=== PATIENT | female | born 1965 | race Caucasian/White ===

== ENCOUNTER 2023-02-14 21:29 | Inpatient (IN) | payer SELFPAY ==
--- NOTE | 2023-02-14 22:14 | ED ---
General Adult HPI - General Chief complaint: Chest Pain Stated complaint: Chest Pain, Shortness of breath, Took Nitro Time Seen by Provider: 02/14/23 21:56 Source: patient Mode of arrival: ambulatory Limitations: no limitations - History of Present Illness Initial comments: This is a 57-year-old female with a past medical history including previous acid reflux presents emergency department for chest pain. The patient stated this chest pain began at 8:30 PM and was on the left side of her chest and was sharp in nature. The patient initially reported that this pain didn't radiate down to the left arm but is now having overall heaviness in her chest and numbness on the left arm. The patient reported that she took her 's nitroglycerin subungual tablets as well as a baby aspirin but stated that she had nausea and vomiting times one. The patient also felt warm. Denied having chest pain like this in the past and stated that she became concerned because the pain was persistent. The patient denied any other acute pain or complaints at this time. - Related Data Home Medications Medication Instructions Recorded Confirmed No Known Home Medications 02/14/23 02/14/23 Allergies Allergy/AdvReac Type Severity Reaction Status Date / Time No Known Allergies Allergy Verified 02/14/23 22:26 Review of Systems ROS Statement: Those systems with pertinent positive or pertinent negative responses have been documented in the HPI. ROS Other: All systems not noted in ROS Statement are negative. Past Medical History Past Medical History: GERD/Reflux Past Psychological History: No Psychological Hx Reported Smoking Status: Current every day smoker, Heavy tobacco smoker Past Alcohol Use History: None Reported Past Drug Use History: Marijuana General Exam Limitations: no limitations General appearance: alert, in no apparent distress Head exam: Present: atraumatic, normocephalic, normal inspection Eye exam: Present: normal appearance, PERRL Pupils: Present: normal accommodation ENT exam: Present: normal exam, normal oropharynx, mucous membranes moist Neck exam: Present: normal inspection, full ROM Respiratory exam: Present: normal lung sounds bilaterally Cardiovascular Exam: Present: normal rhythm, bradycardia, normal heart sounds GI/Abdominal exam: Present: soft, normal bowel sounds Extremities exam: Present: normal inspection, full ROM Back exam: Present: normal inspection, full ROM Neurological exam: Present: alert, oriented X3, CN II-XII intact Psychiatric exam: Present: normal affect, normal mood Skin exam: Present: warm, dry Course Vital Signs 04/17/23 04/17/23 04/17/23 21:33 21:51 22:00 Temperature 98.4 F Pulse Rate 61 59 L 50 L Respiratory 22 Rate Blood Pressure 184/83 139/87 O2 Sat by Pulse 98 Oximetry 02/14/23 02/14/23 02/14/23 22:10 22:20 22:30 Temperature Pulse Rate 55 L Respiratory Rate Blood Pressure 182/91 183/145 204/103 O2 Sat by Pulse Oximetry EKG Findings - EKG Comments: EKG Findings:: An EKG was obtained and was interpreted by myself showing a rate of 50, NH interval 190, QRS duration of 83 and QTC of 397. This EKG showed a sinus bradycardia with signs of possible ST segment elevation in lead 2, 3 and aVF. There was also ST segment elevations in lead V3, V4, V5 and V6 without any reciprocal depressions noted. These elevations were approximately 1-2mm and disease findings, a repeat EKG was ordered 15 minutes from the original EKG. Repeat EKG showed a rate of 52, NH intervals 195, QRS duration of 88 and QTC of 411. This EKG had similar findings and therefore a STEMI was activated at 2213. Medical Decision Making - Medical Decision Making Was pt. sent in by a medical professional or institution (, PA, SHOPPER, urgent care, hospital, or assisted...) When possible be specific @ -No Did you speak to anyone other than the patient for history (EMS, parent, family, police, friend...)? What history was obtained from this source @ -No Did you review nursing and triage notes (agree or disagree)? Why? @ -I reviewed and agree with nursing and triage notes Were old charts reviewed (outside hosp., previous admission, EMS record, old EKG, old radiological studies, urgent care reports/EKG's, assisted records)? Report findings @ -No old charts were reviewed Differential Diagnosis (chest pain, altered mental status, abdominal pain women, abdominal pain men, vaginal bleeding, weakness, fever, dyspnea, syncope, headache, dizziness, GI bleed, back pain, seizure, CVA, palpatations, mental health)? @ -STEMI, NSTEMI, pneumothorax, pneumonia EKG interpreted by me (3pts min.). @ -As above X-rays interpreted by me (1pt min.). @ -Chest x-ray was ordered however was not performed as the patient did the tra nsported up to the Pharmacy Account Director per STEMI protocol prior to completion CT interpreted by me (1pt min.). @ -None done U/S interpreted by me (1pt. min.). @ -None done What testing was considered but not performed or refused? (CT, X-rays, U/S, labs)? Why? @ -None What meds were considered but not given or refused? Why? @ -None Did you discuss the management of the patient with other professionals (professionals i.e. , PA, SHOPPER, lab, RT, psych nurse, social insurance adviser, stained glass glazier helper, teacher, search and rescue officer, housing case manager)? Give summary @ -Yes, rolling up machine operator on-call, Dr. Rueda was contacted per the STEMI protocol and accepted the patient to the Pharmacy Account Director emergently. Was smoking cessation discussed for >3mins.? @ -Yes Was critical care preformed (if so, how long)? @ -Yes, see above Were there social determinants of health that impacted care today? How? (Homelessness, low income, unemployed, alcoholism, drug addiction, transp ortation, low edu. Level, literacy, decrease access to med. care, usp, rehab)? @ -No Was there de-escalation of care discussed even if they declined (Discuss DNR or withdrawal of care, Hospice)? DNR status @ -No What co-morbidities impacted this encounter? (DM, HTN, Smoking, COPD, CAD, Cancer, CVA, ARF, Chemo, Hep., AIDS, mental health diagnosis, sleep apnea, morbid obesity)? @ -None Was patient admitted / discharged? Hospital course, mention meds given and route, prescriptions, significant lab abnormalities, going to OR and other pertinent info. @ -The patient was seen and evaluated emergency department. On physical exam when the patient arrived back to the room, an EKG was obtained and it did evaluate this EKG immediately. There was concerns for ST segment elevations therefore a repeat EKG was performed 15 minutes later and confirmed this. Because of the patient's symptoms and complaints in the setting of EKG findings, a STEMI was called at 2213. Laboratory workup and chest x-ray were ordered however the patient was transported up to the Pharmacy Account Director emergently at 2223 before the patient could receive any medications or labs. The patient was told of this and was agreeable. The patient was transported emergently to the Pharmacy Account Director. The patient's primary care physician was also contacted and accepted the patient for admission. Undiagnosed new problem with uncertain prognosis? @ -No Drug Therapy requiring intensive monitoring for toxicity (Heparin, Nitro, Insulin, Cardizem)? @ -No Were any procedures done? @ -No Diagnosis/symptom? @ -STEMI Acute, or Chronic, or Acute on Chronic? @ -Acute Uncomplicated (without systemic symptoms) or Complicated (systemic symptoms)? @ -Complicated Side effects of treatment? @ -No Exacerbation, Progression, or Severe Exacerbation? @ -No Poses a threat to life or bodily function? How? (Chest pain, [place], [place], pneumonia, PE, COPD, DKA, ARF, appy, cholecystitis, CVA, Diverticulitis, Homicidal, Suicidal, threat to staff... and all critical care pts) @ -Yes, STEMI can lead to permanent damage and possible . - Lab Data Result diagrams: 02/14/23 22:17 02/14/23 22:17 Lab Results 02/14/23 02/14/23 02/14/23 Range/Units 22:17 22:17 22:17 WBC 8.1 (3.8-10.6) k/uL RBC 5.12 (3.80-5.40) m/uL Hgb 15.6 (11.4-16.0) gm/dL Hct 45.2 (34.0-46.0) % MCV 88.2 (80.0-100.0) fL MCH 30.4 (25.0-35.0) pg MCHC 34.5 (31.0-37.0) g/dL RDW 13.0 (11.5-15.5) % Plt Count 172 (150-450) k/uL MPV 9.4 Neutrophils % 53 % Lymphocytes % 36 % Monocytes % 6 % Eosinophils % 3 % Basophils % 1 % Neutrophils # 4.3 (1.3-7.7) k/uL Lymphocytes # 2.9 (1.0-4.8) k/uL Monocytes # 0.5 (0-1.0) k/uL Eosinophils # 0.3 (0-0.7) k/uL Basophils # 0.1 (0-0.2) k/uL Sodium 137 (137-145) mmol/L Potassium 4.3 (3.5-5.1) mmol/L Chloride 109 H (98-107) mmol/L Carbon Dioxide 24 (22-30) mmol/L Anion Gap 4 mmol/L BUN 17 (7-17) mg/dL Creatinine 0.77 (0.52-1.04) mg/dL Est GFR (CKD-EPI)AfAm >90 (>60 ml/min/1.73 sqM) Est GFR (CKD-EPI)NonAf 87 (>60 ml/min/1.73 sqM) Glucose 119 H (74-99) mg/dL Calcium 11.8 H (8.4-10.2) mg/dL Magnesium 2.3 (1.6-2.3) mg/dL Total Bilirubin 0.5 (0.2-1.3) mg/dL AST 27 (14-36) U/L ALT 22 (4-34) U/L Alkaline Phosphatase 172 H (38-126) U/L Troponin I <0.012 (0.000-0.034) ng/mL Total Protein 6.6 (6.3-8.2) g/dL Albumin 4.1 (3.5-5.0) g/dL Critical Care Time Critical Care Time: Yes Total Critical Care Time: 31 Disposition Clinical Impression: ST elevation myocardial infarction (STEMI) Disposition: ADMITTED IP TO THIS [facility] Condition: Fair Is patient prescribed a controlled substance at d/c from ED?: No Time of Disposition: 22:13 Decision to Admit Reason: Admit from EC Decision Date: 02/14/23 Decision Time: 22:13
[2023-02-14 22:26] LABS: Basophils # (A) 0.1 k/uL (0-0.2); Basophils % (A) 1 %; Eosinophils # (A) 0.3 k/uL (0-0.7); Eosinophils % (A) 3 %; HCT 45.2 % (34.0-46.0); HGB 15.6 gm/dL (11.4-16.0); Lymphocytes # (A) 2.9 k/uL (1.0-4.8); Lymphocytes % (A) 36 %; MCH 30.4 pg (25.0-35.0); MCHC 34.5 g/dL (31.0-37.0); MCV 88.2 fL (80.0-100.0); Mean Platelet Volume 9.4; Monocytes # (A) 0.5 k/uL (0-1.0); Monocytes % (A) 6 %; Neutrophils # (A) 4.3 k/uL (1.3-7.7); Neutrophils % (A) 53 %; Platelet Count 172 k/uL (150-450); RBC 5.12 m/uL (3.80-5.40); WBC 8.1 k/uL (3.8-10.6)
[2023-02-14] MEDS ORDERED: NALOXONE 0.4 MG/ML 1 ML VIAL IV PRN (22:28)
[2023-02-14] MEDS ORDERED: IV FLUID CONTINUATION 1,000 ML IV ONE (22:30)
[2023-02-14] MEDS ORDERED: fentaNYL (PF) 50 MCG/ML 2 ML AMP ONE (22:37)
[2023-02-14] MEDS ORDERED: LIDOCAINE 1% INJ 10MG/ML (20 ML MDV) ONE (22:37)
[2023-02-14 22:41] LABS: ALT 22 U/L (4-34); AST 27 U/L (14-36); African American GFR (CKD) >90 (>60 ml/min/1.73 sqM); Albumin 4.1 g/dL (3.5-5.0); Alkaline Phosphatase 172 U/L (38-126); Anion Gap 4 mmol/L; Blood Urea Nitrogen 17 mg/dL (7-17); Calcium 11.8 mg/dL (8.4-10.2); Carbon Dioxide 24 mmol/L (22-30); Chloride 109 mmol/L (98-107); Glucose 119 mg/dL (74-99); Magnesium 2.3 mg/dL (1.6-2.3); Non-African American GFR(CKD) 87 (>60 ml/min/1.73 sqM); Potassium 4.3 mmol/L (3.5-5.1); Sodium 137 mmol/L (137-145); Total Bilirubin 0.5 mg/dL (0.2-1.3); Total Protein 6.6 g/dL (6.3-8.2)
[2023-02-14] MEDS ORDERED: LIDOCAINE 1% INJ 10MG/ML (5 ML VIAL-PF) SQ ONE (22:41)
[2023-02-14] MEDS ORDERED: MIDAZOLAM 2 MG/2 ML VIAL IV ONE (22:43)
[2023-02-14] MEDS ORDERED: fentaNYL (PF) 50 MCG/ML 2 ML AMP IV ONE (22:43)
[2023-02-14] MEDS ORDERED: IOPAMIDOL-370 125ML BTL INJ ONE (22:49)
[2023-02-14] MEDS ORDERED: RX INFO: IV CONTRAST WAS GIVEN 1 EACH MISC MISCELLANE PRN (23:03)
[2023-02-14] MEDS ORDERED: SODIUM CHLORIDE 0.9% 1,000 ML IV SCH (23:15)
[2023-02-14 23:16] LABS: Glucose,Whole Blood 135 mg/dL (70-110)
--- NOTE | 2023-02-15 07:35 | P.PN ---
Subjective Progress Note Date: 02/15/23 PROGRESS NOTE The patient is a 57-year-old female with no prior cardiac history who presented with chest discomfort and questionable inferior wall changes. She underwent cardiac catheterization that showed no obstructive disease. She's feeling better this morning. She denies any chest discomfort, dizziness or palpitations. Hemodynamically she is stable and continues to be in sinus mechanism. There is no evidence of arrhythmia. Medications: IV normal saline PHYSICAL EXAMINATION: Blood pressure 129/70 heart rate 50 LUNGS: Clear to auscultation HEART: Regular rate and rhythm, S1, S2. No S3. No systolic murmur ABDOMEN: Soft, nontender, no organomegaly EXTREMETIES: No edema, right groin no hematoma LAB: Troponin less than 0.012, BUN 17, potassium 4.3 IMPRESSION: 1. Chest discomfort, noncardiac 2. Episodes of hypertension now stable PLAN: 1. Obtain an echocardiogram with Doppler 2. Increase physical activity 3. Transfer to telemetry 4. If no evidence of segmental wall motion abnormality on the echo probable discharge home today and follow-up as an outpatient Objective - Vital Signs Vital signs: Vital Signs Temp 98.4 F 02/15/23 04:00 Pulse 49 L 02/15/23 07:20 Resp 13 02/15/23 07:20 BP 164/81 02/15/23 07:20 Pulse Ox 94 L 02/15/23 07:20 FiO2 Intake & Output 02/14/23 02/15/23 02/15/23 18:59 06:59 18:59 Intake Total 625 Output Total 400 Balance 225 Weight 68 kg Intake: IV 625 Sodium Chloride 0.9% 1, 525 000 ml @ 75 mls/hr IV . [id number] [facility] Rx#:[id number] Output: Urine 400 Other: Voiding Method Bedpan - Labs CBC & Chem 7: 02/14/23 22:17 02/14/23 22:17 Labs: Abnormal Lab Results - Last 24 Hours (Table) 02/14/23 02/14/23 Range/Units 22:17 23:14 Chloride 109 H (98-107) mmol/L Glucose 119 H (74-99) mg/dL POC Glucose (mg/dL) 135 H (70-110) mg/dL Calcium 11.8 H (8.4-10.2) mg/dL Alkaline Phosphatase 172 H (38-126) U/L
--- NOTE | 2023-02-15 08:34 | P.HPIM ---
History of Present Illness H&P Date: 02/15/23 Chief Complaint: Chest pain This is a 57-year-old female who presented to the emergency room after an episode of chest pain last night. Patient reports chest pain was on the left side of her chest and was sharp in nature, with heaviness in her chest and numbness down the left arm. She didn't take a nitroglycerin on a baby aspirin at home. Also reported nausea and vomiting once. Patient reports she also felt warm during this episode. She does have a history of acid reflux. EKG in the emergency room showed sinus bradycardia with signs of possible ST segment elevation. Patient was taken to the tanbark laborer her heart catheterization which was normal. Patient is seen this morning laying in bed with no current complaints, she is eager to get home. Review of Systems Constitutional: Denies chills, Denies fever Cardiovascular: Reports chest pain, Denies dyspnea on exertion Gastrointestinal: Reports nausea, Reports vomiting, Denies abdominal pain Musculoskeletal: Denies leg numbness/tingling, Denies muscle weakness Neurological: Denies headaches, Denies weakness Past Medical History Past Medical History: GERD/Reflux Additional Past Medical History / Comment(s): Kidney stones History of Any Multi-Drug Resistant Organisms: None Reported Past Surgical History: No Surgical Hx Reported Past Anesthesia/Blood Transfusion Reactions: No Reported Reaction Past Psychological History: No Psychological Hx Reported Smoking Status: Current every day smoker, Heavy tobacco smoker Past Alcohol Use History: None Reported Past Drug Use History: Marijuana Medications and Allergies Home Medications Medication Instructions Recorded Confirmed Type No Known Home Medications 02/14/23 02/14/23 History Allergies Allergy/AdvReac Type Severity Reaction Status Date / Time No Known Allergies Allergy Verified 02/14/23 22:26 Physical Exam Vitals: Vital Signs Temp Pulse Resp BP Pulse Ox 02/15/23 07:20 49 L 13 164/81 94 L 02/15/23 07:10 53 L 9 L 164/81 94 L 02/15/23 07:00 57 L 15 129/71 95 02/15/23 06:50 50 L 14 129/71 94 L 02/15/23 06:40 46 L 15 129/71 97 02/15/23 06:30 45 L 12 129/71 94 L 02/15/23 06:20 51 L 14 129/71 93 L 02/15/23 06:10 52 L 13 129/71 93 L 02/15/23 06:00 49 L 14 124/65 94 L 02/15/23 05:50 52 L 13 124/65 94 L 02/15/23 05:40 51 L 14 124/65 94 L 02/15/23 05:30 56 L 17 124/65 93 L 02/15/23 05:20 59 L 13 124/65 94 L 02/15/23 05:10 55 L 13 124/65 94 L 02/15/23 05:00 52 L 14 122/81 93 L 02/15/23 04:50 53 L 14 122/81 93 L 02/15/23 04:40 52 L 14 122/81 93 L 02/15/23 04:30 54 L 14 122/81 93 L 02/15/23 04:20 53 L 13 122/81 94 L 02/15/23 04:10 51 L 13 122/81 93 L 02/15/23 04:00 98.4 F 50 L 13 118/69 92 L 02/15/23 03:50 52 L 13 118/69 94 L 02/15/23 03:40 49 L 13 118/69 94 L 02/15/23 03:30 54 L 15 118/69 93 L 02/15/23 03:20 49 L 13 118/69 94 L 02/15/23 03:10 60 18 118/69 92 L 02/15/23 03:00 49 L 13 127/77 93 L 02/15/23 02:50 53 L 13 127/77 94 L 02/15/23 02:40 53 L 14 127/77 93 L 02/15/23 02:30 56 L 10 L 127/77 95 02/15/23 02:20 59 L 18 127/77 95 02/15/23 02:10 16 127/77 96 02/15/23 02:00 50 L 14 144/82 97 02/15/23 01:50 56 L 15 144/82 96 02/15/23 01:40 52 L 15 144/82 96 02/15/23 01:30 48 L 14 144/82 96 02/15/23 01:20 54 L 17 144/82 95 02/15/23 01:10 47 L 16 144/82 96 02/15/23 01:00 48 L 13 149/86 96 02/15/23 00:50 57 L 15 149/86 96 02/15/23 00:40 53 L 15 149/86 97 02/15/23 00:30 50 L 14 149/86 97 02/15/23 00:20 50 L 14 149/86 97 02/15/23 00:10 50 L 12 149/86 96 02/15/23 00:00 47 L 10 L 173/96 97 02/14/23 23:50 48 L 15 173/96 97 02/14/23 23:40 47 L 14 178/83 96 02/14/23 23:30 14 178/83 96 02/14/23 23:20 50 L 15 178/83 95 02/14/23 22:30 204/103 02/14/23 22:20 183/145 02/14/23 22:10 55 L 182/91 02/14/23 22:00 50 L 139/87 02/14/23 21:51 59 L 02/14/23 21:33 98.4 F 61 22 184/83 98 Intake and Output 02/14/23 02/15/23 02/15/23 22:59 06:59 14:59 Intake Total 100 525 Output Total 400 Balance 100 125 Intake: IV 100 525 Sodium Chloride 0.9% 1, 525 000 ml @ 75 mls/hr IV . [id number] [facility] Rx#:[id number] Output: Urine 400 Other: Voiding Method Bedpan Weight 65.317 kg 68 kg - Constitutional General appearance: cooperative, no acute distress - EENT Eyes: EOMI, PERRLA - Neck Neck: no lymphadenopathy, normal ROM, no rigidity - Respiratory Respiratory: bilateral: CTA - Cardiovascular Rhythm: regular Heart sounds: normal: S1, S2 - Gastrointestinal General gastrointestinal: soft, no tenderness - Integumentary Integumentary: normal, normal turgor - Psychiatric Psychiatric: A&O x's 3, appropriate affect, intact judgment & insight Results CBC & Chem 7: 02/14/23 22:17 02/14/23 22:17 Labs: Abnormal Lab Results - Last 24 Hours (Table) 02/14/23 02/14/23 Range/Units 22:17 23:14 Chloride 109 H (98-107) mmol/L Glucose 119 H (74-99) mg/dL POC Glucose (mg/dL) 135 H (70-110) mg/dL Calcium 11.8 H (8.4-10.2) mg/dL Alkaline Phosphatase 172 H (38-126) U/L Thrombosis Risk Factor Assmnt - Choose All That Apply Any of the Below Risk Factors Present?: Yes Each Factor Represents 1 point: Acute PR, Age 41-60 years, Medical pt on bed rest, Obesity (BMI >25) Other Risk Factors: No Other congenital or acquired thrombophilia - If yes, enter type in comment: No Thrombosis Risk Factor Assessment Total Risk Factor Score: 4 Thrombosis Risk Factor Assessment Level: Moderate Risk Assessment and Plan (1) Chest pain Current Visit: Yes Status: Acute Code(s): R07.9 - CHEST PAIN, UNSPECIFIED SNOMED Code(s): 99087870 (2) GERD (gastroesophageal reflux disease) Current Visit: Yes Status: Acute Code(s): K21.9 - GASTRO-ESOPHAGEAL REFLUX DISEASE WITHOUT ESOPHAGITIS SNOMED Code(s): 117194352 (3) ST elevation myocardial infarction (STEMI) Current Visit: Yes Status: Acute Code(s): I21.3 - ST ELEVATION (STEMI) MYOCARDIAL INFARCTION OF [facility] SITE SNOMED Code(s): 52188866 Plan: Cardiology has ordered an echo for today. Possible discharge home today if echo is normal. Patient seen and evaluated by nurse practitioner, physician in agreement with plan
--- NOTE | 2023-02-15 09:16 | CC ---
CARDIAC CATHETERIZATION REPORT INDICATION: Acute inferior wall myocardial infarction. PROCEDURE NOTE: After obtaining informed consent, left heart catheterization and coronary angiogram were performed via the right femoral artery using standard Juliana catheters. The patient tolerated the procedure well without any obvious immediate complications. The patient received moderate conscious sedation. Total sedation time was 12 minutes. FINDINGS: 1. HEMODYNAMICS: Left ventricular end-diastolic pressure is 18 to 20 mm. There is no significant gradient across the aortic valve. 2. LEFT VENTRICULOGRAM: Left ventriculogram is not performed. 3. ANGIOGRAPHIC DATA: a.Right coronary artery: Right coronary artery is a dominant vessel and this shows mild nonobstructive plaque. b.Left main coronary artery is a normal-sized vessel, divides into left anterior descending coronary artery, ramus intermedius, and a nondominant circumflex coronary artery. They are free of significant focal obstructive disease. CONCLUSION: Mild nonobstructive coronary artery disease. PLAN: The patient's chest discomfort is noncardiac in origin. I am going to run troponins on her. Check a D-dimer and obtain a 2D echo tomorrow morning. We will admit her to the floor. MMODL / IJN: [id number] /
--- NOTE | 2023-02-15 09:40 | CONS ---
CONSULTATION CHIEF COMPLAINT: Chest pain. HISTORY OF PRESENT ILLNESS: This is a 57-year-old lady with no significant past medical history, who presented to hospital with sudden-onset chest pain which started around 8:30. She took some sublingual nitroglycerin that belonged to her with some improvement in her symptoms. She became somewhat nauseous and diaphoretic, came to the ER where an acute inferior ST-segment elevation CT was diagnosed by ER physician and activated. I met her in the blood bank laboratory technician where her chest discomfort was improving. She had subtle ST elevation in the inferior leads. The patient is a smoker. There is no other cardiac history. MEDICATIONS: None. ALLERGIES: None. FAMILY HISTORY: Significant for premature coronary artery disease. SOCIAL HISTORY: Significant smoking. There is no history of EtOH abuse or drug abuse. REVIEW OF SYSTEMS: 14 out of 14 review of systems has been performed. Pertinents are as documented. PHYSICAL EXAMINATION: GENERAL: Comfortable at rest. VITAL SIGNS: Stable. NECK: There is no jugular venous distention. Carotid upstroke is normal. There is no bruit. CHEST: Reveals good air entry bilaterally. HEART: Reveals first and second heart sounds. No gallop. No murmur. ABDOMEN: Soft and nontender. EXTREMITIES: Did not reveal any edema. Peripheral pulses are felt. LABORATORY DATA: Labs are pending at this time. ASSESSMENT: Acute inferior wall myocardial infarction. PLAN: The patient will undergo emergent cardiac catheterization. The patient understands risks, benefits, and alternatives. MMODL / IJN: [id number] /
[2023-02-15 10:15] VITALS: BP 154/82; TEMP 98.2
--- NOTE | 2023-02-15 11:07 | CA ---
Transthoracic Echo Report Name: Raegan Bryant Age: 57 Gender: F : 1965 Exam Date: 02/15/2023 08:34 Exam Location: [place] [facility] Ht (in): 62 Wt (lb): 144 Ordering Physician: Angel Rueda MD ([id number]) Attending/Referring Phys: Marybeth PETERSEN [employer] Rodri Cristina RDCS Procedure CPT: Indications: ACS Cardiac Hx: Technical Quality: Good Contrast 1: Total Dose (mL): Contrast 2: Total Dose (mL): MEASUREMENTS (Male / Female) Normal Values 2D ECHO LV Diastolic Diameter PLAX 3.1 cm 4.2 - 5.9 / 3.9 - 5.3 cm LV Systolic Diameter PLAX 2.3 cm LV Fractional Shortening PLAX 27.6 % IVS Diastolic Thickness 1.5 cm 0.6 - 1.0 / 0.6 - 0.9 cm IVS Systolic Thickness 1.7 cm LVPW Diastolic Thickness 1.3 cm 0.6 - 1.0 / 0.6 - 0.9 cm LVPW Systolic Thickness 1.8 cm LV Relative Wall Thickness 0.9 RV Internal Dim ED PLAX 2.8 cm LVOT Diameter 1.9 cm LA Systolic Diameter LX 2.8 cm 3.0 - 4.0 / 2.7 - 3.8 cm LV Diastolic Volume MOD BP 74.8 cm??? 67 - 155 / 56 - 104 cm??? LV Systolic Volume MOD BP 23.3 cm??? 22 - 58 / 19 - 49 cm??? LV Ejection Fraction MOD BP 68.8 % >= 55 % LV Stroke Volume MOD BP 51.4 cm??? LV Diastolic Volume MOD 4C 57.3 cm??? LV Systolic Volume MOD 4C 23.7 cm??? LV Ejection Fraction MOD 4C 58.7 % LV Stroke Volume MOD 4C 33.6 cm??? LV Diastolic Length 4C 7.1 cm LV Systolic Length 4C 6.0 cm LV Diastolic Volume MOD 2C 85.3 cm??? LV Systolic Volume MOD 2C 22.3 cm??? LV Ejection Fraction MOD 2C 73.9 % LV Stroke Volume MOD 2C 63.0 cm??? LV Diastolic Length 2C 8.2 cm LV Systolic Length 2C 5.7 cm Ascending Aorta Diameter 2.3 cm M-MODE LV Diastolic Diameter MM 3.4 cm 4.2 - 5.9 / 3.9 - 5.3 cm LV Diastolic Volume MM Teich 47.3 cm??? LV Systolic Diameter MM 1.4 cm LV Systolic Volume MM Teich 5.3 cm??? LV Fractional Shortening MM 57.9 % 25 - 43 / 27 - 45 % LV Ejection Fraction MM Teich 88.7 % LV Stroke Volume MM Teich 42.0 cm??? IVS Diastolic Thickness MM 1.3 cm 0.6 - 1.0 / 0.6 - 0.9 cm IVS Systolic Thickness MM 2.0 cm LVPW Diastolic Thickness MM 1.4 cm 0.6 - 1.0 / 0.6 - 0.9 cm LVPW Systolic Thickness MM 1.8 cm LV Relative Wall Thickness MM 0.8 0.24 - 0.42 / 0.22 - 0.42 LVMW Fractional Shortening MM 12.8 % 14 - 22 / 15 - 23 % LV Mass MM 157.5 g 88 - 224 / 67 - 162 g LV Mass Index MM 93.2 g/m??? 49 - 115 / 43 - 95 g/m??? RV Diastolic Diameter MM 2.7 cm Aortic Root Diameter MM 3.0 cm LA Systolic Diameter MM 3.6 cm LA Ao Ratio MM 1.2 AV Cusp Separation MM 1.5 cm DOPPLER AV Peak Velocity 143.3 cm/s AV Peak Gradient 8.2 mmHg LVOT Peak Velocity 112.9 cm/s LVOT Peak Gradient 5.1 mmHg AV Area Cont Eq pk 2.2 cm??? MV Deceleration Lander 399.1 cm/s??? MR Peak Velocity 259.9 cm/s MR Peak Gradient 27.0 mmHg Mitral E Point Velocity 89.2 cm/s Mitral A Point Velocity 74.6 cm/s Mitral E to A Ratio 1.2 MV Deceleration Time 223.6 ms MV E' Velocity 6.0 cm/s Mitral E to MV E' Ratio 15.0 TR Peak Velocity 235.8 cm/s TR Peak Gradient 22.2 mmHg Right Ventricular Systolic Press 30.2 mmHg PV Peak Velocity 126.7 cm/s PV Peak Gradient 6.4 mmHg FINDINGS Left Ventricle Left ventricular ejection fraction is estimated at 60-65 %. Mild concentric left ventricular hypertrophy. Grade 2 diastolic dysfunction. Normal basal systolic function. Right Ventricle Normal right ventricular size and function. RVSP-30mm Hg. Right Atrium Normal right atrial size. Left Atrium Mild left atrial dilatation. Mitral Valve Mitral valve thickened. [id number] mitral regurgitation. Aortic Valve Trileaflet aortic valve. Diffuse thickening (sclerosis) of the aortic valve cusps without reduced excursion. Focal thickening of the aortic valve cusps. Tricuspid Valve Mild tricuspid regurgitation. Pulmonic Valve Valvular pulmonic stenosis. PV max-1.27 m/s;trace pulmonic regurgitation. Pericardium Echo free space anterior to the right ventricle likely represents a fat pad. Aorta Normal size aortic root and proximal ascending aorta. CONCLUSIONS Normal LV systolic function Normal wall motion Previewed by: Dr. Angel Rueda MD (Electronically Signed) Final Date: 15 February 2023 11:06
[2023-02-15 12:14] VITALS: PULSE 47; RESP 14
--- NOTE | 2023-02-15 14:10 | P.DS ---
Providers Date of admission: 02/14/23 22:28 Attending physician: Binu Ortega Consults: 02/14/23 22:28 Consult Physician Stat Consulting Provider: [facility] Consult Reason/Comments: STEMI Do you want consulting provider notified?: Already Contacted Primary care physician: Binu Ortega Assessment: This is discharge on a 57-year-old white female who is essentially admitted for anginal pain of the chest. She ended up having cardiac catheterization which was nominal. No obstructive lesions were noted in the coronary system. She ended up having an echocardiogram. She does have an underlying history of reflux esophagitis is stated that for the last 2-3 weeks she stopped taking medication because she was asymptomatic. We went over any type of dietary modifications that could cause her reflux acid problem to become worse. She denies any significant caffeine or alcohol use. Spicy foods do sometimes make her pain worse. We will have her follow-up in about 7 days. Cardiac authorizat ion was nominal as was echocardiogram. She was discharged in stable condition tolerating diet and pain-free Patient Condition at Discharge: Good Plan - Discharge Summary Discharge Rx Participant: No New Discharge Prescriptions: No Action No Known Home Medications Discharge Medication List No Known Home Medications 02/14/23 [History] Follow up Appointment(s)/Referral(s): Binu Ortega MD [Primary Care Provider] - 1-2 days Angel Rueda MD [STAFF PHYSICIAN] - 1 Week Discharge Disposition: HOME SELF-CARE
[2023-02-15 17:17] LABS: HDL Cholesterol 29.6 mg/dL (40.00-60.00)
[2023-02-15 17:39] LABS: Chol/HDL Ratio 7.4 Ratio
== END 2023-02-15 15:21 | disposition home or self-care (01) | DRG 287 ==
LOC: EC 21:29 → 2SICU 22:28
PROVIDERS: ADMIT Family Medicine; ATTEND Family Medicine
PROC: B2111ZZ Fluoroscopy of Multiple Coronary Arteries using Low Osmolar Contrast (ICD-10-PCS; 2023-02-14)
PROC: 4A023N7 Measurement of Cardiac Sampling and Pressure, Left Heart, Percutaneous Approach (ICD-10-PCS; principal; 2023-02-14 22:27)
PROC: B246ZZZ Ultrasonography of Right and Left Heart (ICD-10-PCS; 2023-02-15)
DX: I25.119 Atherosclerotic heart disease of native coronary artery with unspecified angina pectoris (principal); I10 Essential (primary) hypertension; R07.89 Other chest pain; K21.00 Gastro-esophageal reflux disease with esophagitis, without bleeding; R00.1 Bradycardia, unspecified; F17.210 Nicotine dependence, cigarettes, uncomplicated; Z87.442 Personal history of urinary calculi; Z82.49 Family history of ischemic heart disease and other diseases of the circulatory system
CPT/HCPCS: 36415; 80053; 80061; 83721; 83735; 84484; 85025; 85379; 93005; 93306; 93458; 96374; 99291